=== PATIENT | female | born 1980 | race Caucasian/White ===

== ENCOUNTER 2017-03-04 15:27 | Emergency (ER) | payer SELFPAY ==
[~2017-03-04] VITALS: Ht 172.7 cm; Wt 89.0 kg
[2017-03-04 15:32] VITALS: Ht 172.7 cm; Wt 89.0 kg
== END 2017-03-04 19:00 | disposition left against medical advice (07) ==
LOC: E/R 15:27
DX: Z53.21 Procedure and treatment not carried out due to patient leaving prior to being seen by health care provider (principal)

== ENCOUNTER 2018-02-14 13:29 | Emergency (ER) | END 2018-02-14 17:58 | disposition home or self-care (01) ==

== ENCOUNTER 2018-03-06 12:33 | Emergency (ER) | payer OTHER ==
[~2018-03-06] VITALS: Wt 72.6 kg
[~2018-03-06 12:33] MED LIST: AMOX1TAB10 PO; HYDR-3029 PO
[2018-03-06] MEDS ORDERED: LORAZEPAM 2 MG INJ IV STA (13:07)
[2018-03-06] MEDS ORDERED: THIAMINE 100 MG TAB PO STA (13:07)
[2018-03-06] MEDS ORDERED: SOD CHLORIDE 0.9% 1,000 ML IV STA (13:07)
--- NOTE | 2018-03-06 14:14 | ERD ---
ER Documentation Chief Complaint Chief Complaint ALCOHOL WITHDRAWAL POSSIBLE SEIZURE TODAY HPI This is a 37-year-old female with a history of alcohol abuse who presents to the emergency room for evaluation of possible alcohol withdrawal and seizure. The patient states that she was prescribed Librium however she stopped taking it 2 days ago because she started drinking again. She states her last drink was at 10 PM on March 05. She states she thinks she had a seizure this morning and came to the ER for evaluation. She denies any chest pain shortness of breath nausea or vomiting at this time. She denies any relieving factors currently. ROS All systems reviewed and are negative except as per history of present illness. Medications Home Meds Active Scripts Hydroxyzine Hcl* (Hydroxyzine Hcl*) 10 Mg Tablet, 10 MG PO Q6H PRN for ANXIETY, #30 TAB Prov:MATTHEW TALBERT PA-C 02/14/18 Amoxicillin/Potassium Clav (Amox-Clav 875-125 mg Tablet) 875-125 mg Tab, 1 TAB PO BID for 7 Days, #14 TAB Prov:MATTHEW TALBERT PA-C 02/14/18 Allergies Allergies: Coded Allergies: No Known Allergy (Unverified , 03/06/18) PMhx/Soc Medical and Surgical Hx: pt denies Medical Hx Hx Alcohol Use: Yes Hx Substance Use: No Hx Tobacco Use: No Smoking Status: Never smoker Physical Exam Vitals Vital Signs Date Temp Pulse Resp B/P (MAP) Pulse Ox O2 O2 Flow FiO2 Time Delivery Rate 03/06/18 98.1 110 18 165/113 99 12:38 (130) Physical Exam INITIAL VITAL SIGNS: Reviewed by me GENERAL: The patient is well developed and appropriate for usual state of health in no apparent distress HEENT: Pupils equal, round, and reactive to light. EOMI. There is no scleral icterus. NECK: C-spine is soft and supple, there is no meningismus. There is no cervical lymphadenopathy. LUNGS: Clear to auscultation bilaterally. There are no rales, wheezes or rhonchi. HEART: Tachycardic, no murmurs, clicks, rubs or gallops. ABDOMEN: Soft, non-tender, non-distended. There are bowel sounds in all four quadrants. No rebound or guarding. EXTREMITIES: There is no peripheral cyanosis or edema. No focal swelling or erythema. NEUROLOGICAL: The patient moves all four extremities with 5/5 strength. Cranial nerves II - XII are intact. Normal gait. Alert and oriented SKIN: There is no apparent rash or petechiae. HEME/LYMPHATIC: There is no evidence of excessive bruising or lymphedema. PSYCHIATRIC: The patient does have an anxious affect Result Diagram: 03/06/18 1324 03/06/18 1324 Results 24 hrs Laboratory Tests Test 03/06/18 13:24 03/06/18 13:26 White Blood Count 9.6 10^3/ul Red Blood Count 3.93 10^6/ul Hemoglobin 13.0 g/dl Hematocrit 38.2 % Mean Corpuscular Volume 97.2 fl Mean Corpuscular Hemoglobin 33.1 pg Mean Corpuscular Hemoglobin Concent 34.0 g/dl Red Cell Distribution Width 13.0 % Platelet Count 128 10^3/UL Mean Platelet Volume 10.2 fl Immature Granulocytes % 0.300 % Neutrophils % 87.3 % Lymphocytes % 7.1 % Monocytes % 4.4 % Eosinophils % 0.3 % Basophils % 0.6 % Nucleated Red Blood Cells % 0.0 /100WBC Immature Granulocytes # 0.030 10^3/ul Neutrophils # 8.4 10^3/ul Lymphocytes # 0.7 10^3/ul Monocytes # 0.4 10^3/ul Eosinophils # 0.0 10^3/ul Basophils # 0.1 10^3/ul Nucleated Red Blood Cells # 0.0 10^3/ul Urine Color KIRA Urine Clarity CLEAR Urine pH 9.0 Urine Specific [place] 1.024 Urine Ketones TRACE mg/dL Urine Nitrite NEGATIVE mg/dL Urine Bilirubin NEGATIVE mg/dL Urine Urobilinogen 1+ mg/dL Urine Leukocyte Esterase TRACE Arlene/ul Urine Microscopic RBC 7 /HPF Urine Microscopic WBC 13 /HPF Urine Squamous Epithelial Cells FEW /HPF Urine Mucus MODERATE /HPF Urine Hemoglobin 1+ mg/dL Urine Glucose NEGATIVE mg/dL Urine Total Protein 3+ mg/dl Sodium Level 137 mmol/L Potassium Level 3.8 mmol/L Chloride Level 100 mmol/L Carbon Dioxide Level 27 mmol/L Anion Gap 10 Blood Urea Nitrogen 6 mg/dl Creatinine 0.60 mg/dl Est Glomerular Filtrat Rate mL/min > 60 mL/min Glucose Level 139 mg/dl Calcium Level 9.3 mg/dl Total Bilirubin 0.7 mg/dl Direct Bilirubin 0.00 mg/dl Indirect Bilirubin 0.7 mg/dl Aspartate Amino Transf (AST/SGOT) 72 IU/L Alanine Aminotransferase (ALT/SGPT) 31 IU/L Alkaline Phosphatase 93 IU/L Total Protein 8.0 g/dl Albumin 4.6 g/dl Globulin 3.40 g/dl Albumin/Globulin Ratio 1.35 Salicylates Level < 1.0 mg/dl Acetaminophen Level < 10.0 ug/ml Ethyl Alcohol Level < 10.0 mg/dl POC Beta HCG, Qualitative NEGATIVE Current Medications Medications Dose Sig/Kimberly Start Time Status Last (Trade) Ordered Route PRN Stop Time Admin Dose Reason Admin Sodium 1,000 ml @ Q1H STAT 03/06/18 DC 03/06/18 Chloride 1,000 mls/hr IV 13:07 13:37 03/06/18 14:06 Lorazepam 1 mg ONCE STAT 03/06/18 DC 03/06/18 (Ativan) IV 13:07 13:37 03/06/18 13:08 Thiamine 100 mg ONCE STAT 03/06/18 DC 03/06/18 HCl PO 13:07 13:36 (Vitamin B1) 03/06/18 13:08 Procedures/MDM This 37-year-old female presents to the emergency room for evaluation of possible alcohol withdrawal. On my exam the patient will anxious and tachycardic. She had no hallucinations and was alert and oriented to person place and time. The patient did have an IV line established and she was given IV fluids, 1 mg of Ativan, and lab work was obtained. The patient's electrolytes are within normal limits at this time. Her hCG is negative. The patient has stated that she stopped taking her Librium and I advised her to continue taking Librium at this time. She states that she will not drink alcohol anymore and I advised her to definitely not combine alcohol and Librium. She also got a prescription for Valium and I told her to avoid using volume along with Librium currently. I think that the patient had a seizure due to the fact that she was not taking her Librium as prescribed. She has had no seizure activity in the emergency room and does feel comfortable with her plan of care for discharge and strict return precautions. She will be discharged home with a prescription for multivitamin Departure Diagnosis: Primary Impression: Alcohol withdrawal Additional Impressions: Anxiety Alcohol abuse Noncompliance with medication regimen Condition: Stable PEPPER WHITT DO Mar 06, 2018 14:14
[2018-03-06] MEDS ORDERED: MULTI PO (14:15)
[2018-03-06] MEDS ORDERED: DIAZ5TAB4 PO (14:25)
[2018-03-06] MEDS ORDERED: CHLO5CAP2 PO (14:26)
[2018-03-06 15:05] VITALS: BP 119/90; PULSE 89; RESP 14
== END 2018-03-06 15:10 | disposition home or self-care (01) ==
LOC: E/R 12:33
DX: F10.239 Alcohol dependence with withdrawal, unspecified (principal); F41.9 Anxiety disorder, unspecified; F10.10 Alcohol abuse, uncomplicated; R40.2142 Coma scale, eyes open, spontaneous, at arrival to emergency department; R40.2252 Coma scale, best verbal response, oriented, at arrival to emergency department; R40.2362 Coma scale, best motor response, obeys commands, at arrival to emergency department; Z91.14 Patient's other noncompliance with medication regimen
CPT/HCPCS: 80053; 80306; 80307; 81001; 81025; 83605; 85025; J2060; J7030; Z7610; 36415; 96374

== ENCOUNTER 2018-04-03 11:46 | Emergency (ER) | payer OTHER ==
[~2018-04-03] VITALS: Wt 74.1 kg
[~2018-04-03 11:46] MED LIST changes: -AMOX1TAB10 PO; +CHLO5CAP2 PO; +DIAZ5TAB4 PO; -HYDR-3029 PO; +MULTI PO
[2018-04-03 11:49] VITALS: BP 129/78; PULSE 89; RESP 18
[2018-04-03] MEDS ORDERED: CEFTRIAXONE 250 MG INJ IM ONE (13:00)
[2018-04-03] MEDS ORDERED: AZITHROMYCIN 250 MG TAB PO ONE (13:00)
--- NOTE | 2018-04-03 13:17 | ERD ---
ER Documentation Chief Complaint Chief Complaint DYSURIA X 3 DAYS HPI 37-year-old female presents with dysuria for the last 3 days. She may have some irritation on the outer vaginal area. She says that the pain is outer does not feel like similar UTIs in the past. She denies discharge except for possibly mild 3 days ago. She denies any fevers, vomiting, significant abdominal pain. She was notified by sexual partner that he was treated for unspecified STD. ROS All systems reviewed and are negative except as per history of present illness. Medications Home Meds Active Scripts Multivitamins* (Theragran*) 1 Tab Tab, 1 TAB PO DAILY for 30 Days, TAB Prov:PEPPER WHITT DO 03/06/18 Reported Medications Chlordiazepoxide* (Chlordiazepoxide*) 5 Mg Capsule, 5 MG PO Q6 PRN for CONTROL WITHDRAWAL SYMPTOMS, CAP 03/06/18 Diazepam* (Diazepam*) 5 Mg Tablet, 5 MG PO DAILY PRN for ANXIETY, TAB 03/06/18 Allergies Allergies: Coded Allergies: No Known Allergy (Unverified , 03/06/18) PMhx/Soc Medical and Surgical Hx: pt denies Medical Hx History of Surgery: Yes (ectopic removal, facial reconstruction) Anesthesia Reaction: No Hx Neurological Disorder: No Hx Respiratory Disorders: No Hx Cardiac Disorders: No Hx Psychiatric Problems: No Hx Miscellaneous Medical Probl: No Hx Alcohol Use: Yes Hx Substance Use: No Hx Tobacco Use: Yes Smoking Status: Current some day smoker FmHx Family History: No diabetes, No coronary disease, No other Physical Exam Vitals Vital Signs Date Temp Pulse Resp B/P (MAP) Pulse Ox O2 O2 Flow FiO2 Time Delivery Rate 04/03/18 98.9 89 18 129/78 98 11:49 (95) Physical Exam Const: No acute distress Head: Atraumatic Eyes: Normal Conjunctiva ENT: Normal External Ears, Nose and Mouth. Neck: Full range of motion. No meningismus. Resp: Clear to auscultation bilaterally Cardio: Regular rate and rhythm, no murmurs Abd: Soft, non tender, non distended. Normal bowel sounds. Vaginal exam with assistance of a construction management instructor shows no vesicles, erythema, discharge. No significant cervical motion tenderness or adnexal tenderness or masses. Skin: No petechiae or rashes Back: No midline or flank tenderness Ext: No cyanosis, or edema Neur: Awake and alert Psych: Normal Mood and Affect Results 24 hrs Laboratory Tests Test 04/03/18 12:49 04/03/18 12:51 Bedside Urine pH (LAB) 7.0 Bedside Urine Protein (LAB) Negative Bedside Urine Glucose (UA) Negative Bedside Urine Ketones (LAB) Negative Bedside Urine Blood Negative Bedside Urine Nitrite (LAB) Negative Bedside Urine Leukocyte Esterase (L Trace POC Beta HCG, Qualitative NEGATIVE Current Medications Medications Dose Sig/Kimberly Start Time Status Last (Trade) Ordered Route PRN Stop Time Admin Dose Reason Admin Ceftriaxone 250 mg ONCE ONCE 04/03/18 DC 04/03/18 Sodium IM 13:00 12:54 (Rocephin) 04/03/18 13:01 1,000 mg ONCE ONCE 04/03/18 DC 04/03/18 Azithromycin PO 13:00 12:54 (Zithromax) 04/03/18 13:01 Procedures/MDM Urine shows trace leukocytes and hCG is negative. Urine sent for gonorrhea chlamydia. Patient was treated empirically after discussion with Rocephin 250 mg IM and 1 g p.o. patient presents with dysuria after possible STD exposure. She will be discharged home with further observation and return precautions for abdominal pain, fevers, new worsening symptoms. No current signs or symptoms of , tubo-ovarian abscess, acute abdomen, additional complications. The patient was stable with no new complaints during the ER course. Clinically, there is no current evidence to suggest meningitis, sepsis, acute abdomen, pneumonia, stroke, acute coronary syndrome, pulmonary embolism, aortic dissection or any other emergent condition appearing to require further evaluation or hospitalization. Patient counseled regarding my diagnostic impression and care plan. Prior to discharge all questions answered. Pt agrees with treatment plan and understands strict return precautions. Pt is instructed to follow up with primary care provider within 24-48 hours. Precautionary instructions provided including instructions to return to the ER if not improving or for any worsening or changing symptoms or concerns. Disclaimer: Inadvertent spelling and grammatical errors are likely due to EHR/dictation software use and do not reflect on the overall quality of patient care. Also, please note that the electronic time recorded on this note does not necessarily reflect the actual time of the patient encounter. Departure Diagnosis: Primary Impression: Dysuria Condition: Stable Patient Instructions: Dysuria, Cervicitis (Std), Treated Additional Instructions: You have been treated for chlamydia and gonorrhea.. Confirmation testing should be back within the next week. Recheck for new or worsening symptoms with primary care doctor. HÉCTOR CARRINGTON MD Apr 03, 2018 13:17
[2018-04-15] MEDS ORDERED: LORA1TAB PO (11:41)
== END 2018-04-03 13:31 | disposition home or self-care (01) ==
LOC: FTE 11:46
DX: R30.0 Dysuria (principal); F17.210 Nicotine dependence, cigarettes, uncomplicated; N89.8 Other specified noninflammatory disorders of vagina
CPT/HCPCS: 81003; 81025; 87591; J0696; Z7610; 96372

== ENCOUNTER 2018-06-19 10:59 | Emergency (ER) | payer SELFPAY ==
[~2018-06-19] VITALS: Ht 180.3 cm; Wt 68.0 kg
[~2018-06-19 10:59] MED LIST changes: +LORA1TAB PO
[2018-06-19 11:01] VITALS: BP 150/73; PULSE 70; RESP 18; Ht 180.3 cm; Wt 68.0 kg
[2018-06-19] MEDS ORDERED: DEXAMETHASONE 10 MG/ML 1 ML INJ IM ONE (12:00)
--- NOTE | 2018-06-19 12:11 | ERD ---
ER Documentation Chief Complaint Chief Complaint EAR PAIN AND SORE X 2 DAYS HPI 37-year-old female with no past medical or surgical history who presents with 2- day complaint of sore throat and ear pain. States she has a previous history of multiple bouts of strep throat and feels symptoms are similar. She has othe rwise been healthy and denies recent URI type symptoms. She otherwise is without complaint. Also a complaint of urinary frequency. ROS All systems reviewed and are negative except as per history of present illness. Medications Home Meds Active Scripts Cephalexin* (Keflex*) 500 Mg Capsule, 500 MG PO BID for 7 Days, CAP Prov:JEUDINE,GETHO PA-C 06/19/18 Amoxicillin* (Amoxicillin*) 500 Mg Cap, 500 MG PO BID for 10 Days, CAP Prov:JEUDINE,GETHO PA-C 06/19/18 Ibuprofen* (Motrin*) 600 Mg Tab, 600 MG PO Q6, #30 TAB Prov:JEUDINE,GETHO PA-C 06/19/18 Lorazepam* (Lorazepam*) 1 Mg Tablet, 1 MG PO Q8H PRN for ANXIETY, #10 TAB Prov:RADHA HIDALGO DO 04/15/18 Multivitamins* (Theragran*) 1 Tab Tab, 1 TAB PO DAILY for 30 Days, TAB Prov:PEPPER WHITT DO 03/06/18 Reported Medications Chlordiazepoxide* (Chlordiazepoxide*) 5 Mg Capsule, 5 MG PO Q6 PRN for CONTROL WITHDRAWAL SYMPTOMS, CAP 03/06/18 Diazepam* (Diazepam*) 5 Mg Tablet, 5 MG PO DAILY PRN for ANXIETY, TAB 03/06/18 Allergies Allergies: Coded Allergies: No Known Allergy (Unverified , 04/15/18) PMhx/Soc History of Surgery: Yes (ectopic removal, facial reconstruction) Anesthesia Reaction: No Hx Neurological Disorder: No Hx Respiratory Disorders: No Hx Cardiac Disorders: No Hx Psychiatric Problems: No Hx Miscellaneous Medical Probl: Yes (ETOH ABUSE ) Hx Alcohol Use: Yes (last drank last night) Hx Substance Use: No Hx Tobacco Use: Yes Smoking Status: Former smoker FmHx Family History: No diabetes, No coronary disease, No other Physical Exam Vitals Vital Signs Date Temp Pulse Resp B/P (MAP) Pulse Ox O2 O2 Flow FiO2 Time Delivery Rate 06/19/18 98.8 70 18 150/73 97 11:01 (98) Physical Exam I have reviewed the triage vital signs. Const: Well nourished, well developed, appears stated age Eyes: PERRL, no conjunctival injection HENT: NCAT, Neck supple without meningismus, tenderness to area of frontal sinus, throat with prominent swelling and erythema, some exudates CV: RRR, Warm, well-perfused extremities RESP: CTAB, Unlabored respiratory effort GI: soft, non-tender, non-distended, no masses MSK: No gross deformities appreciated Skin: Warm, dry. No rashes Neuro: grossly non focal Psych: Appropriate mood and affect. Results 24 hrs Laboratory Tests Test 06/19/18 12:07 Urine Color KIRA Urine Clarity CLOUDY Urine pH 5.0 Urine Specific [place] 1.030 Urine Ketones NEGATIVE mg/dL Urine Nitrite NEGATIVE mg/dL Urine Bilirubin NEGATIVE mg/dL Urine Urobilinogen 1+ mg/dL Urine Leukocyte Esterase 2+ Arlene/ul Urine Microscopic RBC 8 /HPF Urine Microscopic WBC > 182 /HPF Urine Squamous Epithelial Cells MANY /HPF Urine Bacteria MODERATE /HPF Urine Mucus FEW /HPF Urine Hemoglobin 2+ mg/dL Urine Glucose NEGATIVE mg/dL Urine Total Protein 2+ mg/dl Current Medications Medications Dose Sig/Kimberly Start Time Status Last (Trade) Ordered Route PRN Stop Time Admin Dose Reason Admin 10 mg ONCE ONCE 06/19/18 DC 06/19/18 Dexamethasone IM 12:00 12:08 (Decadron) 06/19/18 12:01 Procedures/MDM 37-year-old female presents with ear pain and sore throat. Also with reported urinary frequency. Symptoms likely secondary to strep pharyngitis given exam. Will elect to treat given clear presentation and defer testing. She otherwise hemodynamically stable nontoxic-appearing. I have no suspicion for other emergent cause of her current symptoms. Did not warrant any further emergent workup or evaluation. Patient's ENT symptoms have stabilized while in the department and are appropriate for outpatient work up. Exam and w/u not consistent w/ deep space infection of the face, throat, or mastoids. No evidence of impending airway compromise or meningitis. UA with 2+ LE, moderate bacteria. Will treat with Keflex antibiotics for UTI. DISPOSITION PLAN: We discussed follow up with the patient's primary care doctor within 24 to 48 hours. Patient counseled regarding my diagnostic impression and care plan. Prior to discharge all questions answered. Pt agrees with treatment plan and understands strict return precautions. Precautionary instructions provided including instructions to return to the ER if not improving or for any worsening or changing symptoms or concerns. Departure Diagnosis: Primary Impression: Right ear pain Condition: Stable Patient Instructions: Pharyngitis, Strep (Presumed) AZALEA PEREZ PA-C Jun 19, 2018 12:11
[2018-06-19] MEDS ORDERED: AMOX500C2 PO (12:22)
[2018-06-19] MEDS ORDERED: IBUP-1542 PO (12:22)
[2018-06-19] MEDS ORDERED: CEPH-443 PO (12:46)
== END 2018-06-19 12:56 | disposition home or self-care (01) ==
LOC: FTE 10:59
DX: H92.01 Otalgia, right ear (principal); Z87.891 Personal history of nicotine dependence
CPT/HCPCS: 81001; J1100; 96372